=== PATIENT | female | born 1995 | race Caucasian/White ===

== ENCOUNTER 2018-06-04 17:38 | Emergency (ER) | payer OTHER ==
[2018-06-04 17:46] VITALS: BP 130/81
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
[2018-06-04] MEDS ORDERED: AZITHROMYCIN 250 MG TAB PO ONE (18:39)
[2018-06-04] MEDS ORDERED: ONDANSETRON DISINTEGRATING 4 MG TAB PO ONE (18:39)
== END 2018-06-04 20:44 | disposition home or self-care (01) ==
LOC: EEVIPCON 17:38
DX: T76.21XA Adult sexual abuse, suspected, initial encounter (principal); S50.312A Abrasion of left elbow, initial encounter; S30.810A Abrasion of lower back and pelvis, initial encounter; S80.212A Abrasion, left knee, initial encounter; S10.81XA Abrasion of other specified part of neck, initial encounter; Y07.9 Unspecified perpetrator of maltreatment and neglect; Y99.9 Unspecified external cause status; Y92.9 Unspecified place or not applicable; Y93.9 Activity, unspecified
CPT/HCPCS: J0696